=== PATIENT | female | born 1955 | race Caucasian/White ===

== ENCOUNTER → 2022-07-30 | Outpatient (CLI) | payer MEDICARE | END | disposition home or self-care (01) | LOC: RESCLI 07-29 10:59 | PROVIDERS: ATTEND Internal Medicine | DX: N89.8 Other specified noninflammatory disorders of vagina (principal); E78.5 Hyperlipidemia, unspecified; I10 Essential (primary) hypertension; M54.16 Radiculopathy, lumbar region; Z98.890 Other specified postprocedural states; Z79.899 Other long term (current) drug therapy ==

== ENCOUNTER → 2023-03-04 | Outpatient (CLI) | payer MEDICARE | END | disposition home or self-care (01) | LOC: RESCLI 00:32 | PROVIDERS: ATTEND Internal Medicine | DX: K52.839 Microscopic colitis, unspecified (principal); I10 Essential (primary) hypertension; T14.8XXA Other injury of unspecified body region, initial encounter; N89.8 Other specified noninflammatory disorders of vagina; Z00.00 Encounter for general adult medical examination without abnormal findings; Z98.890 Other specified postprocedural states; Z79.899 Other long term (current) drug therapy; W57.XXXA Bitten or stung by nonvenomous insect and other nonvenomous arthropods, initial encounter; Y93.89 Activity, other specified; Y92.89 Other specified places as the place of occurrence of the external cause; Y99.8 Other external cause status ==

== ENCOUNTER → 2024-04-22 | Outpatient (CLI) | payer MEDICARE | END | disposition home or self-care (01) | LOC: RESCLI 01:14 | PROVIDERS: ATTEND Internal Medicine | DX: K52.839 Microscopic colitis, unspecified (principal); M81.0 Age-related osteoporosis without current pathological fracture; I10 Essential (primary) hypertension; E55.9 Vitamin D deficiency, unspecified; E78.5 Hyperlipidemia, unspecified; N89.8 Other specified noninflammatory disorders of vagina; Z00.00 Encounter for general adult medical examination without abnormal findings; Z98.890 Other specified postprocedural states; Z79.899 Other long term (current) drug therapy ==